=== PATIENT | male | born 1975 ===

== ENCOUNTER 2017-02-09 13:30 | Outpatient (RCR) | payer OTHER | END 2017-02-10 14:15 | disposition home or self-care (01) | LOC: MKS.ESL.OT 13:30 | DX: S66.012D Strain of long flexor muscle, fascia and tendon of left thumb at wrist and hand level, subsequent encounter (principal); M65.332 Trigger finger, left middle finger; Y99.0 Civilian activity done for income or pay ==

== ENCOUNTER 2017-03-25 14:24 | Outpatient (RCR) | payer OTHER | END 2017-03-27 | LOC: WSOH | DX: S66.012A Strain of long flexor muscle, fascia and tendon of left thumb at wrist and hand level, initial encounter (principal); X50.3XXA Overexertion from repetitive movements, initial encounter; Y99.0 Civilian activity done for income or pay | CPT/HCPCS: J1030 ==

== ENCOUNTER 2017-04-06 14:26 | Outpatient (RCR) | payer OTHER | END 2017-04-19 11:18 | LOC: WSOH 14:26 | DX: S66.012D Strain of long flexor muscle, fascia and tendon of left thumb at wrist and hand level, subsequent encounter (principal); M65.332 Trigger finger, left middle finger; X50.3XXD Overexertion from repetitive movements, subsequent encounter; Y99.0 Civilian activity done for income or pay ==